=== PATIENT | female | born 2005 | race Caucasian/White ===

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

== ENCOUNTER 2023-11-12 23:39 | Emergency (ER) | payer BC ==
[~2023-11-12] VITALS: Ht 162.6 cm; Wt 56.7 kg
[~2023-11-12 23:39] MED LIST: ONDA-8 TL
[2023-11-12 23:54] VITALS: BP_SYST 117; PULSE 75; RESP 16; TEMP 97; O2SAT 98
[2023-11-13] MEDS: fentaNYL CITRATE/PF 100 MCG/2 ML AMP IM ONE (01:26)
[2023-11-13 01:31] VITALS: BP_SYST 117; PULSE 75; RESP 16; TEMP 97; O2SAT 98
== END 2023-11-13 01:31 | disposition home or self-care (01) ==
LOC: SED 23:39
DX: R51.9 Headache, unspecified (principal); M54.2 Cervicalgia; Z88.6 Allergy status to analgesic agent; Z88.5 Allergy status to narcotic agent; Z79.899 Other long term (current) drug therapy; W03.XXXA Other fall on same level due to collision with another person, initial encounter; Y93.66 Activity, soccer; Y92.89 Other specified places as the place of occurrence of the external cause; Y99.8 Other external cause status
CPT/HCPCS: 99285; 70450; 72125; 96372; J3010